=== PATIENT | male | born 1955 | race Caucasian/White ===

== ENCOUNTER 2022-03-21 09:37 | Emergency (ER) | payer MEDICARE, BC, SELFPAY ==
[2022-03-21 09:42] VITALS: BP 153/83; PULSE 78; RESP 20; TEMP 36.2; O2SAT 99; BMI 29.5
[2022-03-21 10:00] VITALS: BP 120/61
[2022-03-21 10:30] VITALS: BP 125/63
[2022-03-21 10:43] VITALS: BP 122/71; RESP 20; O2SAT 98
[2022-03-21 11:00] VITALS: BP 126/74; PULSE 50; RESP 20; O2SAT 99
[2022-03-21 11:30] VITALS: BP 120/47; PULSE 50; RESP 20; O2SAT 98
--- NOTE | 2022-03-21 17:47 | ED_ITS ---
HPI - General Adult General Time Seen by Provider: 10:45 Date Seen: 03/21/22 Chief complaint: High Blood Pressure Stated complaint: high blood pressure Time Seen by Provider: 03/21/22 10:17 Source: patient, RN notes reviewed and old records reviewed Mode of arrival: ambulatory Limitations: no limitations History of Present Illness HPI narrative: Uvaldo is a very pleasant 66-year-old gentleman with a history of an GA with stent placement in April of 2020 who comes to the emergency room with concerns regarding elevated blood pressure. Patient notes that this morning he took a blood pressure and it was 180 systolic. He did not read take it but rather took a nitroglycerin tablet because he been told that this could bring down blood pressure as well as treat chest pain. Patient states that he did not repeated but has noticed that his blood pressure has been gradually increasing. He found it strange that his heart rate was up in the 90s even though he did take his metoprolol this morning. He currently takes lisinopril 5 mg and metoprolol 12.5 mg daily. He notes that he had a slight headache that he describes as a 1/10. There was no floaters in his vision, neck pain, chest pain, shortness of breath. He has not had any recent trauma. Does agree that he drinks a large amount of caffeine in the form of coffee. I did ask if there was some anxiety provoking event this morning any states that he was reading about a former president in the paper and was not happy. Currently at this time is blood pressure is 120 systolic and he has had no further symptoms and complete resolution of any head pressure that he felt earlier. Patient notes that he recently had a hip replaced and that he feels much better and he is just starting to walk again like he use to. He does not smoke. Related Data Home Medications Medication Instructions Recorded Confirmed aspirin 81 mg chewable tablet 81 mg PO DAILY 03/21/22 03/21/22 atorvastatin 80 mg tablet 80 mg PO DAILY 03/21/22 03/21/22 lisinopril 5 mg tablet 5 mg PO DAILY 03/21/22 03/21/22 metoprolol tartrate 25 mg tablet 12.5 mg PO BID 03/21/22 03/21/22 nitroglycerin 0.4 mg sublingual 0.4 mg sublingual Q5M PRN 03/21/22 03/21/22 tablet Allergies Allergy/AdvReac Type Severity Reaction Status Date / Time clopidogrel [From Plavix] Allergy Hives Verified 03/21/22 09:47 Review of Systems Narrative: Patient denies any recent cough cold congestion. He has had no visual changes, sore throat, difficulty speaking, numbness or tingling of the extremities or loss of bowel or bladder control. PFSH PFSH Social History Smoking Status: Former smoker Do you use any of these nicotine containing products: Vaping Products Second hand tobacco smoke exposure: No How often do you have a drink containing alcohol: never How often do you have six or more drinks on one occasion: Never AUDIT-C Alcohol total score: 0 Non-prescribed substance use: denies use Exam Const: Vital Signs, click to edit/add: Vital Signs - 24 hr 03/21/22 09:42 03/21/22 10:00 03/21/22 10:30 Temperature 97.1 F L Pulse Rate [Right] 78 Respiratory Rate 20 Blood Pressure [Le ft Upper Arm] 153/83 H 120/61 125/63 Pulse Oximetry 99 Oxygen Delivery Me thod 03/21/22 10:43 03/21/22 11:00 03/21/22 11:30 Temperature Pulse Rate [Right] 50 L 50 L Respiratory Rate 20 20 20 Blood Pressure [Le ft Upper Arm] 122/71 126/74 120/47 L Pulse Oximetry 98 99 98 Oxygen Delivery Me thod Room Air Room Air Documenting provider has reviewed patient's vital signs: yes Common normals: no apparent distress, average body habitus, oriented x3, no limitations, healthy appearing, alert and well nourished General appearance: cooperative and comfortable HENMT: Common normals: normocephalic, head/scalp atraumatic and external ears normal Head and scalp: normocephalic and atraumatic Face and sinus: normal facial exam External ear: external ears normal Eye: Common normals: PERRL General eye: normal appearance of both eyes Pupil: PERRL Other: Slight dysconjugate gaze at rest corrects with purposeful eye movement. Pupils are equal round and reactive. Neck & C-Spine: Common normals: full ROM Resp: Common normals: normal respiratory effort and clear to auscultation bilaterally Auscultation: clear to auscultation bilaterally Cardio: Common normals: regular rhythm Rate: bradycardic Rhythm: regular rhythm GI: Common normals: soft to palpation and non-tender Palpation: soft Extremity: Common normals: normal to inspection Neuro: Common normals: oriented x3 Sensorium/orientation: alert Speech: speech normal Psych: Common normals: mental status grossly normal, thought process normal and speech normal Appearance: grossly normal Attitude: calm and engaged Activity/motor behavior: appropriate eye contact Speech: normal speech Thought process: normal thought process Thought content: normal thought content Attention/concentration: attention grossly intact Memory/cognition: memory grossly intact Insight: insight good Judgement: judgment good Skin: Common normals: no rashes or lesions noted General skin exam: no rashes or lesions noted Course Course Hospital Course: Patient's initial blood pressure was 153/83 here in the emergency room. This was after he had taken nitroglycerin. In the subsequent hour blood pressure dropped to 120/47 with values then 125 systolic and 126 systolic prior to discharge. Patient had no headache, visual symptoms, chest pain, abdominal pain nausea or vomiting. Vital Signs Vital signs: Initial Vital Signs Temperature 97.1 F L 03/21/22 09:42 Temperature Source Temporal Artery Scan 03/21/22 09:42 Pulse Rate 78 03/21/22 09:42 Pulse Rhythm 03/21/22 09:42 Respiratory Rate 20 03/21/22 09:42 Blood Pressure 153/83 H 03/21/22 09:42 Blood Pressure Mean 106 03/21/22 09:42 Blood Pressure Position Sitting 03/21/22 09:42 Pulse Oximetry 99 03/21/22 09:42 Vital Signs Temperature 97.1 F L 03/21/22 09:42 Pulse Rate 78 03/21/22 09:42 Respiratory Rate 20 03/21/22 09:42 Blood Pressure 153/83 H 03/21/22 09:42 Pulse Oximetry 99 03/21/22 09:42 Temperature 97.1 F L 03/21/22 09:42 Pulse Rate 50 L 03/21/22 11:30 Respiratory Rate 20 03/21/22 11:30 Blood Pressure 120/47 L 03/21/22 11:30 Pulse Oximetry 98 03/21/22 11:30 Oxygen Delivery Method 03/21/22 11:30 Medical Decision Making MDM Narrative Medical decision making narrative: 1. Episode of elevated blood pressure-patient has improvement of this at this time. No recurrent symptoms. Certainly initial decreased blood pressure could be [place] on nitroglycerin but he has been at least 2 hours out from that dosing and continues to have normal blood pressure. He is only on 12.5 mg of metoprolol and yet has a heart rate in the low 50s and thus would not be able to change that dosing. I would ask that he follow-up with his primary MD after taking his blood pressure 223 2 times during the day over the next 48-72 hours. He can then share this with his primary MD He may need to move up on his lisinopril dosing. I suspect that the elevated blood pressure in conjunction with elevated heart rate for him (in the 90s) actually had something to do with a bit of an adrenaline bonner related to his reading activity. 2. Disposition- Patient is going to be discharged home but I would ask that he return or seek medical attention if he would have a return of any headache, chest pain or as needed. ECG Data Attestation: I personally reviewed and interpreted this ECG as follows: Prior ECG tracings: available for review Interpretation: Patient has sinus bradycardia at a rate of 52. Previous ST elevation noted on EKG from 2019 has resolved. Normal QT and NE intervals are noted. Discharge Plan Discharge Clinical Impression: Elevated blood pressure reading Patient Disposition: Home, Self-Care Condition: Improved Additional Instructions: Recommend checking blood pressure 3 times a day for 2-3 days and following up with your primary MD. recommend decreasing total caffeine intake without eliminating it completely. Return to the emergency room for chest pain, recurrence of headache, shortness of breath, and as needed. Prescriptions: No Action atorvastatin 80 mg tablet 80 mg PO DAILY Label Comments: TAKE 1 TABLET (80 MG) BY MOUTH AT BEDTIME. lisinopril 5 mg tablet 5 mg PO DAILY Label Comments: TAKE 1 TABLET (5 MG) BY MOUTH ONCE DAILY. metoprolol tartrate 25 mg tablet 12.5 mg PO BID Label Comments: TAKE ONE-HALF TABLET BY MOUTH TWICE A DAY nitroglycerin 0.4 mg tablet, sublingual 0.4 mg sublingual Q5M PRN aspirin 81 mg tablet,chewable 81 mg PO DAILY Follow Up/Referrals: Nitesh Brand MD [Primary Care Provider] - Stand Alone Forms: [employer] Info Instructions
== END 2022-03-21 11:44 | disposition home or self-care (01) ==
LOC: ED 11:14
PROVIDERS: Emergency Provider Family Medicine; PCP Family Medicine
DX: R03.0 Elevated blood-pressure reading, without diagnosis of hypertension (principal)
CPT/HCPCS: 93005; 99283; 99284

== ENCOUNTER 2025-07-25 10:59 | Day surgery (SDC) | payer MEDICARE, BC, SELFPAY ==
[2025-07-25] VITALS (22 sets, daily range): BP systolic 84–129; BP diastolic 44–80; PULSE 62–89; RESP 12–18; TEMP 35.9–37.1; O2SAT 93–98; BMI 34.8
--- NOTE | 2025-07-25 11:56 | W.PM.H&PU ---
History & Physical Update History & Physical Update H&P Reviewed and patient assessed: No changes noted
[2025-07-25] MEDS: OXYCODONE (CR) 10 MG TAB.ER.12H PO (12:04)
[2025-07-25] MEDS: ACETAMINOPHEN 500 MG TABLET 1000 MG PO ×2 (12:04→17:13)
[2025-07-25] MEDS: LACTATED RINGERS 1000 ML 1,000 ML 100 ML IV ×3 (12:05→16:02)
[2025-07-25] MEDS: SODIUM CHLORIDE 0.9 % (FLUSH) 10 ML SYRINGE IVF (12:25)
--- NOTE | 2025-07-25 12:56 | CRLHL7_ITS ---
For Patients: As a result of the Cures Act, medical imaging exams and procedure reports are released immediately into your electronic medical record. You may view this report before your referring provider. If you have questions, please contact your health care provider. Indication: Hip replacement surgery Technique: AP hip fluoroscopic image. Fluoroscopy time 108.9 seconds. Findings/Impression: Hardware from a left total hip arthroplasty is in satisfactory position. Dictated by Uvaldo Nassar MD @ 07/25/2025 3:46:18 PM (Electronically Signed)
[2025-07-25] MEDS: MIDAZOLAM HCL 1 MG/ML inj IVP (13:05)
--- NOTE | 2025-07-25 13:06 | SUR.PREOP ---
TIME?OUT:?1303 PT/RN/MDA?VERIFICATION?OF?SURGICAL?SITE-left hip,?PROCEDURE,?NERVE BLOCK AND?CONSENT OBTAINED?PRIOR?TO?INVASIVE?PROCEDURE.
--- NOTE | 2025-07-25 13:28 | CRLHL7_ITS ---
For Patients: As a result of the Cures Act, medical imaging exams and procedure reports are released immediately into your electronic medical record. You may view this report before your referring provider. If you have questions, please contact your health care provider. Indication: POST OP s/p Total hip arthroplasty Technique: AP hips and pelvis and lateral view left hip Findings/Impression: Hardware from a left total hip arthroplasty is in satisfactory position. Bone alignment is normal. No sign of acute fracture. Postop changes are within normal limits. Dictated by Uvaldo Nassar MD @ 07/26/2025 9:42:51 AM (Electronically Signed)
[2025-07-25] MEDS: TRANEXAMIC ACID 100 MG/ML INJ 1000 MG IV (13:45)
--- NOTE | 2025-07-25 14:24 | P.NB_ITS ---
Nerve Block Nerve Block Time Seen by Provider: 13:00 Date Seen: 07/25/25 Type of block requested by surgeon for post-operative analgesia: TABATHA/LFCN Side: left Time out performed: Yes Verification of patient name: Yes Verification of date of : Yes Site marking: site marked Name of person performing procedure: Kapil Continuous monitoring Was continuous monitoring of O2 sat, B/P, monitoring coordinator, recorded every 15 minutes?: Yes Procedure Checklist: sterile prep, needles and gloves Ultrasound guided. Images saved: Yes Medications given in 5ml increments after negative aspiration: Ropivicaine %: 0.5 mL: 30 Needle gauge: 20 Precedex (mcg): 25 Patient tolerated procedure well: Yes Additional comments: Needle noted below psoas tendon needle noted adjacent to LFCN Block Charges Block Charge (with Pro Fee): Other Periph Nerve Block Use of Ultrasound Machine for Block: Yes- US Guidance/pain block
--- NOTE | 2025-07-25 14:25 | W.ANESCHARGE ---
Anesthesia Charges Start Date/Time Anesthesia Start Date: 07/25/25 Anesthesia Start Time: 13:11 Stop Date/Time Anesthesia Stop Date: 07/25/25 Anesthesia Stop Time: 16:20 Coding CPT Codes CPT Codes: ANESTH HIP ARTHROPLASTY - 96882 ([id number]) P3 - PATIENT W/SEVERE SYS DISEASE, QK - CLOTH SECONDS SORTER 2-4 CNCRNT ANES PROC, QX - LARD TUB WASHER SVC W/ MD MED DIRECTION
--- NOTE | 2025-07-25 14:25 | P.ANES_ITS ---
Anesthesia Charges Start Date/Time Anesthesia Start Date: 07/25/25 Anesthesia Start Time: 13:11 Stop Date/Time Anesthesia Stop Date: 07/25/25 Anesthesia Stop Time: 16:20 Coding CPT Codes CPT Codes: ANESTH HIP ARTHROPLASTY - 94950 ([id number]) P3 - PATIENT W/SEVERE SYS DISEASE, QK - ENGROSSER 2-4 CNCRNT ANES PROC, QX - STUDIO COORDINATOR SVC W/ MD MED DIRECTION
--- NOTE | 2025-07-25 15:49 | P.ORPRC_ITS ---
Procedure Note Date of procedure: 07/25/25 Procedure: PREOPERATIVE DIAGNOSIS: 1. Left hip osteoarthritis, severe, primary POSTOPERATIVE DIAGNOSIS: 1. Left hip osteoarthritis, severe, primary PROCEDURE: 1. Left total hip arthroplasty-anterior approach 2. Intraoperative fluoroscopy interpreted by Kieran Osorio M.D. for intraoperative evaluation of arthroplasty implant component positioning and leg length/offset evaluation. Fluoroscopy time was 108.9 seconds. SURGEON: Kieran Osorio MD. REGULATORY SUBMISSIONS ASSOCIATE: Katie Graf PA-C; COURTNEY Garcia - Of note, a skilled communication assistant was critical for this case to aid in patient positioning, tissue retraction, limb manipulation/positioning, dislocation/relocation, patient safety, and closure. ANESTHESIA: General endotracheal anesthetic EBL: 750 mL IMPLANTS: De[employer]uy J[employer] uncemented total hip [place] cup size 58, cancellous acetabular screw (x2), hole eliminator, +4 neutral liner Actis stem, high offset, size 9 +5 mm ceramic 36 mm head. COMPLICATIONS: None evident INDICATIONS: The patient is a pleasant 69-year-old male who has experienced severe left hip pain and difficulty bearing weight. Workup included x-rays which revealed severe osteoarthrosis in the hip. Given the deformity, the dysfunction, and the pain, as well as the failure of nonoperative management, recommendation was made for surgery. FINDINGS: Full-thickness chondral loss diffusely throughout the femoral head and acetabulum. Osteophytes around the femoral head/neck junction. Large effusion upon entering the joint. DESCRIPTION OF PROCEDURE: Following a thorough discussion of risks, benefits, a nd alternatives consent was obtained and the left hip was marked. The patient was brought to the operating room and placed supine on the operating table. Induction of anesthesia was undertaken. 2 g IV Ancef and 1 g tranexamic acid was administered within 1 hr of incision preoperatively. Proper time-out was performed identifying proper patient, site, procedure. The operative extremity was prepped and draped in the appropriate sterile fashion using ChloraPrep after the patient was positioned on the [place] table with head in neutral alignment and all bony prominences well padded. C-arm fluoroscopic imaging was utilized to confirm proper pelvis rotation and position, and to get true AP films of both the contralateral left, and the affected left hip. This is for comparison. A longitudinal incision was made starting just distal to the ASIS, aiming distal and lateral at an oblique angle relative to the thigh. The incision was extended distally aiming toward the fibular head. Sharp incision through skin and bovie cautery through the subcutaneous tissue allowed identification of the TFL fascia. This was sharply divided, and the fascia bluntly released from the muscle fibers as we dissected medial. Upon coming to the medial border, we were able to retract the TFL laterally, and penetrated the deeper fascia and identify the crossing circumflex vessels. These were ligated/cauterized. The rectus was elevated from the capsule, and retractors placed laterally and medially along the femoral neck to help with visualization of the capsule. We then performed an inverted T capsulotomy. The capsule was tagged for later repair. Retractors were placed inside the capsule. The femoral neck was visualized after releasing medially down to the lesser trochanter, along the saddle laterally, and up onto the acetabulum. The femoral neck cut was made in line with our preoperative templating. The head was removed in a single piece, and sized. We turned our attention to acetabular preparation. Initially, the labrum was resected from around the perimeter, the pulvinar was excised, allowing us to visualize the false wall. We started the reaming with a 51 mm reamer. This was medialized down to the true wall. We then enlarged our reamers sequentially up to one size less than the selected cup size. We trialed at the same size and found it to have an excellent fit. The selected cup was then opened, inserted, and impacted in line with the goal of 40-45? of abduction, and 20? of anteversion. While attempting to insert the cup, not a very good purchase was encountered. We reassessed the acetabulum and found a fairly sclerotic ridge that seemed to be pushing this more anterior. Therefore, we reset the reamers back to smaller sizes and resected the cup and were able to get an excellent purchase with the cup but chose to place 2 screws to reinforce stability and rotational control. Once the cup was placed, we placed a hole eliminator and a liner consistent with preop planning. Attention was turned to the femoral preparation. The limb was extended, externally rotated, and adducted. The posteromedial capsule was released, as retractors were placed allowing excellent access to the proximal femur. Initially a box office manager was followed by canal finder followed by various broaches. We broached sequentially up to size noted above, found it to have excellent rotational control, and trialing various heads and necks, revealed that appropriate neck offset, and the above noted head size provided the greatest stability, and gnosticism of length, and offset. C-arm fluoroscopic imaging confirmed position of the stem, as well as leg lengths, which were compared with the pre procedure all fluoroscopic images. Trial implants were removed, the real femoral stem inserted, as was the ceramic head. After reducing, the leg was placed through range of motion and stability was confirmed anterior, posterior, and lateral. A 3 min Betadine soak was then performed, and thorough irrigation with normal saline followed. Closure of the capsule was performed with #1 PDS. Bleeding was confirmed to be controlled at this stage, and the TFL fascia was closed with #0 strata fix. Subcutaneous, and subcuticular closure was performed with 2-0 Stratafix and 4-0 Stratafix, respectively. Dressings were applied, and the patient was awoken from anesthesia and transferred the PACU in stable condition. A skilled communication assistant was critical for this case to aid in patient positioning, tissue retraction, proximal femur exposure, limb manipulation/positioning, dislocation/relocation, patient safety, and closure. PLAN: 1. Weight bear as tolerated operative extremity. 2. 23 hr perioperative antibiotics. 3. Ice. 4. PT/OT consults for ambulation assistance/mobility education. 5. Social work consult for discharge planning. 6. DVT prophylaxis with at SCDs and Xarelto x5 days followed by aspirin for a total of 1 month.
--- NOTE | 2025-07-25 16:23 | PM.IMCN1 ---
Date of Consult Consult date: 07/25/25 Primary Care Provider: Nitesh Brand MD Consult Narrative Narrative: Uvaldo Villatoro is a 69 year old male patient with past medical history of hypertension, CAD ( history of STEMI s/p stenting IN 2019), Pulmonary emphysema, KATI, GERD and depression who presents for an elective orthopedic surgery for severe osteoarthritis of his left hip. Patient is status post left hip replacement. Pt has history of bilateral severe hip arthritis. He had total hip arthroplasty on right side in December of 2021 and this was uncomplicated. Patient denies history of DVT/PE and history of bleeding. He has obstructive sleep apnea. He uses CPAP. Hx of Acute ST elevation myocardial infarction (STEMI) involving left anterior descending (LAD) coronary artery s/p stenting in 2019. An echocardiogram last year showed normal estimated EF. Review of Systems Status of ROS: Reports: 6 or more systems reviewed and unremarkable except as noted in History and below [facility] Medical History (Updated 07/25/25 @ 19:33 by Shayna Martinez MD) Pulmonary emphysema ?J43.9 - Emphysema, unspecified (ICD-10) Osteoarthritis of left hip ?M16.12 - Unilateral primary osteoarthritis, left hip (ICD-10) ST elevation myocardial infarction (STEMI) ?I21.3 - ST elevation (STEMI) myocardial infarction of unspecified site (ICD-10) Obstructive sleep apnea syndrome ?G47.33 - Obstructive sleep apnea (adult) (pediatric) (ICD-10) Hypertension ?I10 - Essential (primary) hypertension (ICD-10) Coronary artery disease ?I25.10 - Atherosclerotic heart disease of viejas coronary artery without angina pectoris (ICD-10) Neuralgia ?M79.2 - Neuralgia and neuritis, unspecified (ICD-10) Anxiety ?F41.9 - Anxiety disorder, unspecified (ICD-10) Depression ?F32.A - Depression, unspecified (ICD-10) GERD (gastroesophageal reflux disease) ?K21.9 - Gastro-esophageal reflux disease without esophagitis (ICD-10) Surgical History (Updated 07/25/25 @ 16:26 by Shayna Martinez MD) H/O heart artery stent ?Z95.5 - Presence of coronary angioplasty implant and graft (ICD-10) Status post total replacement of right hip (12/10/21) ?Z96.641 - Presence of right artificial hip joint (ICD-10) Social History Narrative: former smoking cigarettes 2020 currently vapes What is your current living situation?: I presently have a place to live Problems where you live: no known problems Problems where you live details: no railings to get up 2 steps into house In the past 12 months, utilities in danger of being shut off: no In past 12 months, lack of transportation kept you from medical appts, meetings, work, or getting things needed for daily living: no In the past 12 mos, have been you worried that your food would run out before you had money to buy more?: never true In the past 12 mos, the food you bought just didn't last and you didn't have money to buy more?: never true Smoking Status: Never smoker Do you use any of these nicotine containing products: E-Cigarettes and Other Nicotine containing products detail: nicotine patch on upper right arm Second hand tobacco smoke exposure: No How often do you have a drink containing alcohol: never How often do you have six or more drinks on one occasion: Never AUDIT-C Alcohol total score: 0 Non-prescribed substance use: denies use Caffeine: Yes How often does anyone, including family, friends and others, physically hurt you: never How often does anyone, including family, friends and others, insult or talk down to you: never How often does anyone, including family, friends and others, threaten you with harm: never Meds Home Medications and Allergies Home Medications ?Medication ?Instructions ?Recorded ?Confirmed ?Type aspirin 81 mg chewable tablet 81 mg PO DAILY 03/21/22 07/25/25 History Held on 07/25/25. Instructions: Resume on 08/26/25. Resume aspirin 81 mg tablet once daily a month after finishing the DVT prophylaxis aspirin regimen which is aspirin 81 mg tablet twice daily. atorvastatin 80 mg tablet 80 mg PO HS 03/21/22 07/25/25 History nitroglycerin 0.4 mg sublingual 0.4 mg sublingual Q5M PRN 03/21/22 07/25/25 History tablet albuterol sulfate 90 mcg/actuation 2 puff inhalation Q4H PRN 04/11/24 07/25/25 History aerosol inhaler (Ventolin HFA) famotidine 20 mg tablet 20 mg PO BID 04/11/24 07/25/25 History fluticasone furoate 200 1 inh inhalation DAILY 05/27/25 07/25/25 History mcg-vilanterol 25 mcg/dose inhalation powder (Breo Ellipta) lisinopril 20 1 tab PO DAILY 05/27/25 07/25/25 History mg-hydrochlorothiazide 12.5 mg tablet acetaminophen 500 mg capsule 500 - 1,000 mg (1 - 2 x 500 mg) PO 07/25/25 Rx Q6H PRN pain #100 caps aspirin 81 mg chewable tablet 81 mg PO BID for DVT prophylaxis 07/25/25 Rx (Aspirin Childrens) 30 days #60 tabs oxycodone 5 mg tablet 2.5 - 5 mg (0.5 - 1 x 5 mg) PO 07/25/25 Rx Q4-6H PRN Pain #42 tabs rivaroxaban 10 mg tablet (Xarelto) 10 mg PO DAILY DVT prophylaxis 4 07/25/25 Rx days #4 tabs sennosides 8.6 mg tablet (Senna 17.2 mg (2 x 8.6 mg) PO BID PRN 07/25/25 Rx Lax) constipation #100 tabs Allergies Allergy/AdvReac Type Severity Reaction Status Date / Time clopidogrel (From Plavix) Allergy Hives Verified 07/09/25 09:42 lactose AdvReac Verified 07/09/25 09:42 Exam Narrative: Exam Narrative: Physical exam GENERAL: Comfortable, no acute distress. HEAD AND NECK: Atraumatic, normocephalic CARDIOVASCULAR: RRR. Normal S1, S2. No murmurs. RESPIRATORY: Clear to auscultation B/L. Good air entry B/L. No wheezes or rhonchi. NEUROLOGY: Alert, awake, oriented X 3. Normal speech. PSYCH: Normal mood, normal affect. Const: Vital Signs, click to edit/add: Vital Signs - 24 hr 07/25/25 12:24 07/25/25 13:10 07/25/25 16:15 Temperature 98.7 F 97.8 F Pulse Rate 62 62 65 Respiratory Rate 16 14 12 Blood Pressure 129/71 110/65 84/44 L Pulse Oximetry 97 98 93 Oxygen Delivery Me thod Room Air Nasal Cannula Room Air Oxygen Flow Rate 3 Assessment and Plan Assessment and plan (1) Status post left hip replacement: Problem comment: Surgery today July 25 Weight bear as tolerated operative extremity. PT/OT consults Encourage incentive spirometry DVT prophylaxis with at SCDs and Xarelto x5 days followed by aspirin for a total of 1 month. Status: Acute (2) ST elevation myocardial infarction (STEMI): Problem comment: Hx of Acute ST elevation myocardial infarction (STEMI) involving left anterior descending (LAD) coronary artery s/p stenting in 2019. An echocardiogram last year showed normal estimated EF. On baby aspirin daily Currently asymptomatic Status: Chronic (3) Pulmonary emphysema: Problem comment: Resume home inhalers Status: Acute (4) Obstructive sleep apnea syndrome: Problem comment: On CPAP Status: Acute (5) GERD (gastroesophageal reflux disease): Problem comment: On famotidine Status: Acute (6) Hypertension: Status: Acute Total Time Spent Total Time Spent: Time spent: Today I spent 75 minutes seeing the patient, discussing the patient with ER staff, reviewing Expanse and EPIC notes/diagnostics, discussing the care plan with our care time that includes social work, PT/OT, pharmacy, RT, long-term and documenting my impressions and plan in the medical record.
--- NOTE | 2025-07-25 16:30 | P.ANES_ITS ---
Anesthesia Charges Start Date/Time Anesthesia Start Date: 07/25/25 Anesthesia Start Time: 13:11 Stop Date/Time Anesthesia Stop Date: 07/25/25 Anesthesia Stop Time: 16:20 Coding CPT Codes CPT Codes: ANESTH HIP ARTHROPLASTY - 43236 ([id number]) P3 - PATIENT W/SEVERE SYS DISEASE, QX - WIND UP WORKER SVC W/ MD MED DIRECTION, QK - ORTHOTIST OR PROSTHETIST 2-4 CNCRNT ANES PROC
--- NOTE | 2025-07-25 16:30 | W.ANESCHARGE ---
Anesthesia Charges Start Date/Time Anesthesia Start Date: 07/25/25 Anesthesia Start Time: 13:11 Stop Date/Time Anesthesia Stop Date: 07/25/25 Anesthesia Stop Time: 16:20 Coding CPT Codes CPT Codes: ANESTH HIP ARTHROPLASTY - 15286 ([id number]) P3 - PATIENT W/SEVERE SYS DISEASE, QX - UNSCRAMBLER SVC W/ MD MED DIRECTION, QK - WHITE LEAD FILTERER 2-4 CNCRNT ANES PROC
[2025-07-25] MEDS: ASPIRIN 81 MG TAB.CHEW PO (19:14)
--- NOTE | 2025-07-25 19:36 | PC.NURSE ---
Nursing Care Hours: [id number] Pt this shift calm and cooperative, alert and oriented. Pain treated with IV and PO options. Reports pain is decreasing. Ice in use. Tolerating regular diet. VSS. Remained in bed this shift.
[2025-07-25] MEDS: LACTATED RINGERS 1000 ML 1,000 ML 75 ML IV (20:09)
[2025-07-25] MEDS: CEFAZOLIN 2 GM in 0.9 % SODIUM CHLORIDE Mini-bag 100 ML IVPB (20:09)
[2025-07-25] MEDS: FAMOTIDINE 20 MG TABLET PO (20:15)
[2025-07-25] MEDS: ATORVASTATIN CALCIUM 40 MG TABLET 80 MG PO (20:15)
[2025-07-25] MEDS: SENNOSIDES 1 TAB TABLET 2 TAB PO (20:15)
[2025-07-26] MEDS: ACETAMINOPHEN 500 MG TABLET 1000 MG PO ×2 (01:49→06:33)
[2025-07-26 02:50] VITALS: BP 123/66; PULSE 85; RESP 20; TEMP 37.2; O2SAT 98
[2025-07-26] MEDS: CEFAZOLIN 2 GM in 0.9 % SODIUM CHLORIDE Mini-bag 100 ML IVPB (04:24)
[2025-07-26 07:00] VITALS: BP 108/60; PULSE 79; RESP 18; TEMP 36.4; O2SAT 94
--- NOTE | 2025-07-26 07:26 | PC.NURSE ---
The patient is pleasant and cooperative, VSS on RA. Ax1 to SBA w/ GB and RW. The patient reported moderate pain which was kept under control with PRN and scheduled medication as well as repositioning and ice pack to the L hip. Dressing is CDI, minimal swelling noted. The patient has voided, although not a copus amount vs what his intake has been. Call light within reach. In the recliner with foot SCDS on. Dalia CHAUHAN BSN
--- NOTE | 2025-07-26 08:01 | PM.ORPN ---
Subjective Subjective Time Seen by Provider: 08:02 Date Seen: 07/26/25 Principal diagnosis: Status post left hip replacement Interval history: Uvaldo is doing well this morning. He is fairly comfortable. He will discharge to home today. Ortho Exam Narrative Exam Narrative: Alert and oriented x3. Patient is in no acute distress. Converses without labored breathing. Hearing is grossly intact. Ambulates with a walker. Examination left hip shows the dressing is in place and intact. No erythema or warmth or sign of infection. Area of decreased sensation distal to the incision, otherwise CMS intact left lower extremity. Mild soft tissue edema about the hip. Calves are soft and nontender. Const Vital Signs, click to edit/add: Vital Signs - 24 hr 07/25/25 12:24 07/25/25 13:10 07/25/25 16:15 Temperature 98.7 F 97.8 F Pulse Rate 62 62 65 Pulse Rate [Left Pulse Oximeter] Respiratory Rate 16 14 12 Blood Pressure 129/71 110/65 84/44 L Blood Pressure [Left Arm] Pulse Oximetry 97 98 93 Oxygen Delivery Method Room Air Nasal Cannula Room Air Oxygen Flow Rate 3 07/25/25 16:20 07/25/25 16:25 07/25/25 16:30 Temperature Pulse Rate 66 67 68 Pulse Rate [Left Pulse Oximeter] Respiratory Rate 12 12 14 Blood Pressure 90/51 L 110/58 L 97/46 L Blood Pressure [Left Arm] Pulse Oximetry 93 95 93 Oxygen Delivery Method Room Air Room Air Room Air Oxygen Flow Rate 07/25/25 16:35 07/25/25 16:40 07/25/25 16:45 Temperature 97.5 F L Pulse Rate 64 65 65 Pulse Rate [Left Pulse Oximeter] Respiratory Rate 14 14 14 Blood Pressure 101/45 L 101/55 L 108/58 L Blood Pressure [Left Arm] Pulse Oximetry 96 95 95 Oxygen Delivery Method Room Air Room Air Room Air Oxygen Flow Rate 07/25/25 16:55 07/25/25 17:00 07/25/25 17:15 Temperature 97.4 F L Pulse Rate Pulse Rate [Left Pulse Oximeter] 67 69 63 Respiratory Rate 14 14 Blood Pressure Blood Pressure [Left Arm] 100/57 L 103/59 L 106/59 L Pulse Oximetry 96 97 97 Oxygen Delivery Method Room Air Room Air Room Air Oxygen Flow Rate 07/25/25 17:30 07/25/25 17:45 07/25/25 18:00 Temperature 96.7 F L Pulse Rate Pulse Rate [Left Pulse Oximeter] 65 70 74 Respiratory Rate 16 Blood Pressure Blood Pressure [Left Arm] 103/59 L 120/66 117/65 Pulse Oximetry 97 Oxygen Delivery Method Oxygen Flow Rate 07/25/25 18:30 07/25/25 19:00 07/25/25 19:50 Temperature 97.2 F L Pulse Rate Pulse Rate [Left Pulse Oximeter] 80 80 83 Respiratory Rate 18 Blood Pressure Blood Pressure [Left Arm] 104/80 123/70 108/66 Pulse Oximetry 93 97 97 Oxygen Delivery Method Room Air Room Air Oxygen Flow Rate 07/25/25 21:00 07/25/25 22:00 07/25/25 22:40 Temperature 96.9 F L 97.1 F L 97.2 F L Pulse Rate Pulse Rate [Left Pulse Oximeter] 83 85 89 Respiratory Rate 18 18 18 Blood Pressure Blood Pressure [Left Arm] 117/64 117/67 111/58 L Pulse Oximetry 96 95 96 Oxygen Delivery Method Room Air Room Air Room Air Oxygen Flow Rate 0 0 07/25/25 23:00 07/26/25 02:50 07/26/25 07:00 Temperature 98.9 F 97.5 F L Pulse Rate Pulse Rate [Left Pulse Oximeter] 85 79 Respiratory Rate 20 18 Blood Pressure Blood Pressure [Left Arm] 123/66 108/60 Pulse Oximetry 95 98 94 Oxygen Delivery Method CPAP CPAP Room Air Oxygen Flow Rate Assessment and Plan Assessment and plan (1) Status post left hip replacement: Problem details: Surgery today July 25 Weight bear as tolerated operative extremity. PT/OT consults Encourage incentive spirometry DVT prophylaxis with at SCDs and Xarelto x5 days followed by aspirin for a total of 1 month. Status: Acute Assessment and Plan: Plan for discharge is today, and when they meets discharge criteria. DVT prophylaxis upon discharge [includes Xarelto 10mg daily for a total of 5 days, then Aspirin 81mg twice daily for 30 days]. Remove dressing 1 week. Observe wound and phone Orthopedics with any questions or concerns Use Ice on operative hip unrestricted. Return to clinic in 1-2 weeks as scheduled for a wound check as scheduled Return to clinic in 6 weeks with surgeon Minimize narcotic use. Wean off and discontinue soon as possible. Activities as tolerated. No strenuous activity. Attend outpt PT
[2025-07-26] MEDS: FAMOTIDINE 20 MG TABLET PO (08:30)
[2025-07-26] MEDS: SENNOSIDES 1 TAB TABLET 2 TAB PO (08:30)
[2025-07-26] MEDS: RIVAROXABAN 10 MG TABLET PO (08:31)
[2025-07-26 11:00] VITALS: BP 114/64; PULSE 73; RESP 16; TEMP 36.7; O2SAT 94
--- NOTE | 2025-07-26 12:48 | PC.NURSE ---
End of shift report [id number]: Pleasant and cooperative with cars. Pain to left hip well managed with current regimen. Dressing clean, dry and intact. Left hip has non pitting edema, no redness noted. Denies any shortness of breath or chest pain. Bowel sounds active x 4 quadrants, denies any nausea or vomiting. Transfers with SBA and ambulates with walker and gait belt. Patient continent of bladder, post void residual at 0820 was average of 415ml, MD updated, continue to monitor. Repeat PVR completed at 1100 and 301ml was average. Discharge paperwork reviewed with patient and spouse. Assisted to personal vehicle via wheelchair.
== END 2025-07-26 12:15 | disposition home or self-care (01) ==
LOC: OR 11:05 → MEDSURG 11:06
PROVIDERS: PCP Family Medicine; Visit Provider Orthopaedic Surgery Sports Medicine
PROC: (CPT 27130; principal; 2025-07-25 13:15)
DX: M16.12 Unilateral primary osteoarthritis, left hip (principal); G89.18 Other acute postprocedural pain; J43.9 Emphysema, unspecified; G47.33 Obstructive sleep apnea (adult) (pediatric); I10 Essential (primary) hypertension; I25.10 Atherosclerotic heart disease of native coronary artery without angina pectoris; K21.9 Gastro-esophageal reflux disease without esophagitis; I25.2 Old myocardial infarction
CPT/HCPCS: 27130; 01214; 36415; 51798; 64450; 73501; 73502; 76000; 76942; 86850; 86900; 86901; 97110; 97116; 97161; 97165; 97530; 97535; A9270; C1713; C1776; J0330; J0690; J1100; J1171; J2250; J2371; J2405; J2704; J2710; J2795; J3010; J7120